=== PATIENT | female | born 1975 | race Caucasian/White ===

== ENCOUNTER 2022-09-26 15:16 | Emergency (ER) | payer SELFPAY ==
[2022-09-26 15:18] VITALS: BP 129/75; PULSE 77; RESP 4; TEMP 36.2; O2SAT 99; BMI 24.0
== END 2022-09-26 17:36 | disposition left against medical advice (07) ==
LOC: ED 17:36
DX: R79.9 Abnormal finding of blood chemistry, unspecified (principal)

== ENCOUNTER 2024-03-07 07:08 | Day surgery (SDC) | payer MEDICAID, SELFPAY ==
--- NOTE | 2024-03-06 16:56 | HP.PCM.OB_ITS ---
History and Physical Date of Admission: 03/07/24 Expand All Collapse All Pre-Op History and Physical HPI: The patient is a 48 year old adult presenting for disucssion regarding LEEP procedure. pre-operative visit. Patient gives a vague history of reaction to local anesthetic with previous LEEP at [facility]. However has received lidocaine or something similar for tooth extraction previously without complication. 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 Procedure discussed along with risks, benefits and complications. Other alternatives discussed for management. Consent form signed? Yes. PAST MEDICAL HISTORY PAST MEDICAL HISTORY Diagnosis Date ? Abnormal Pap smear of cervix ? Acid reflux ? Hx of breast biopsy ? Hypothyroidism ? MTHFR gene mutation PAST SURGICAL HISTORY PAST SURGICAL HISTORY Procedure Laterality Date ? BX OF BREAST; INCISIONAL Right clip ? CERVIX UTERI CONIZA LP ELCTRO EXCI ? D&C, DIAG AND/OR THERAPEUTIC ? LIGATE FALLOPIAN TUBE ? PT ED OBSTETRICS & GYNECOLOGY ablation ? REMOVAL GALLBLADDER CURRENT MEDICATIONS Current Outpatient Medications Medication Sig Dispense Refill ? levothyroxine (SYNTHROID) 125 mcg tablet Take 1 tablet by mouth every afternoon. ? aspirin, enteric coated (ASPIRIN, ENTERIC COATED) 81 mg EC tablet aspirin 81 mg tablet,delayed release TAKE 1 TABLET BY MOUTH ONCE DAILY ? cetirizine (ZYRTEC) 10 mg tablet Take 1 tablet by mouth once daily. ? cholecalciferol (VITAMIN D3) 50 mcg (2,000 unit) tablet cholecalciferol (vitamin D3) 50 mcg (2,000 unit) tablet TAKE 1 TABLET BY MOUTH ONCE DAILY ? cyanocobalamin (VITAMIN B-12) 1,000 mcg tab cyanocobalamin (vit B-12) 1,000 mcg tablet TAKE 1 TABLET BY MOUTH ONCE DAILY ? folic acid 1 mg tablet folic acid 1 mg tablet TAKE 1 TABLET BY MOUTH ONCE DAILY ? pantoprazole DR (PROTONIX) 40 mg tablet pantoprazole 40 mg tablet,delayed release ? levothyroxine (SYNTHROID) 112 mcg tablet Take 1 tablet by mouth every afternoon. (Patient not taking: Reported on 02/28/2024) ? levothyroxine (SYNTHROID) 100 mcg tablet Take 1 tablet by mouth once daily. (Patient not taking: Reported on 02/28/2024) No current facility-administered medications for this visit. ALLERGIES: Sulfa (Sulfonamide Antibiotics), Albuterol, Clindamycin, Erythromycin, Lorazepam, Meperidine, Moxifloxacin, Penicillins, and Propoxyphene N-Acetaminophen PERSONAL HISTORY: SOCIAL HISTORY Social History Tobacco Use ? Smoking status: Every Day Types: Cigarettes ? Smokeless tobacco: Never Vaping Use ? Vaping Use: Never used Substance Use Topics ? Alcohol use: Not Currently ? Drug use: Never FAMILY HISTORY: FAMILY HISTORY No family history on file. REVIEW OF SYMPTOMS: negative except as noted above PHYSICAL EXAMINATION: VITALS: Blood pressure 114/62, weight 59 kg (130 lb), last menstrual period . GENERAL: The patient is well nourished, well hydrated in no acute distress. , The patient is oriented to time, place, and person. NECK: full range of motion LUNGS: Clear to auscultation bilaterally. 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 Reviewed possible burn injury. Spenser with the patient not smoking day of surgery. Discussed with the patient pre and postop instructions. Spenser with the patient IntraOp injection of lidocaine or Marcaine may be given. There was nothing in her previous op note to support that she had a cardiac reaction to Lidocaine with epinephrine from 06/06/2013- I personally reviewed the note myself in care everywhere. I have reviewed and updated past medical and surgical history, medications and allergies Chelle Stokes MD
[2024-03-07] VITALS (10 sets, daily range): BP systolic 99–129; BP diastolic 61–72; PULSE 62–69; RESP 12–16; TEMP 36.2–36.6; O2SAT 97–100; BMI 24.6
--- NOTE | 2024-03-07 | CER_PTH ---
PATIENT: OREN LUCIANO [place] [facility] [place][id number] AGE/SX: 48/F ROOM: RE03/07/[address]: Dr. 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 Cervix, leep colonization: Focal minimal changes suspicious for HPV cytopathic effects. Focal minimal chronic inflammation. Resection margins are free of dysplastic changes. See comment. B. Endocervical curettings: Fragments of benign endocervical epithelium and mucosa, negative for dysplasia. See comment. /mr 03/08/2024 COMMENT A. Immunohistochemistry ([id number]) for surrogate HPV marker (p16) supports the above diagnosis. Clinical correlation is necessary. Case has been reviewed in consultation with Dr. Pierson who concurs with the above diagnosis. IDC:AM MICROSCOPIC DESCRIPTION Slides are reviewed. GROSS DESCRIPTION A. Received in fixative is one container labeled with the patient's name and designated Cervix cut at 12 o'clock. The specimen consists of a piece of talbert indurated tissue consistent with Leep colonization measuring 2.6 x 3.5 x 0.6cm. No mucosal lesion is identified. Nonmucosal surface is inked black. The endocervical margin is inked blue. Cervix is previously opened and identified as opened at 12 o'clock. The entire specimen is submitted in eight cassettes as follows: 1 and 2- 12-3o'clock, 3 and 4- 3-6 o'clock, 5 and 6-6-9 o'clock, 7 and 8- 9-12 o'clock. B. Received in fixative is one container labeled with the patient's name and designated Endocervical curettings. The specimen consists of multiple fragments of hemorrhagic soft tissue measuring in aggregate 2.0 x 0.5 x 0.1cm. The entire specimen is submitted in one cassette. Kinjal 03/07/2024 TC:5 CPT:25808, 87643
--- NOTE | 2024-03-07 | IMM_PTH ---
PATIENT: OREN LUCIANO [place]: [facility] [place][id number] AGE/SX: 48/F ROOM: RE03/07/[address]: Dr. Chelle Simon, MDDOB: 1975 BED: DIS: 03/07/2024 SPEC #: [id number] RECD: 03/08/24 12:02 STATUS: SID PADMAJA #: [id number] DALE: 03/07/24 00:[address]: Chelle Simon DEPT: IMMUNOHISTOCHEMISTRY RECD BY: Drake Bryant ENTERED: 03/08/24 12:03 SP TYPE: IMMUNO OTHR DR: Corinne Swann, CLAIM EXAMINER-Tova Tissues: A - Uterine cervix, NOS Procedures: p16 (initial) KI-67 (add) PHYSICIAN & INSTITUTION [place] [id number] SPECIMEN INFORMATION: Tissue Source: A- Cervix, cut margins at 12o'clock Clinical Info: CINN II on biopsies Specimen Number: [id number] CPT code: 89320,75642 METHODOLOGY: Deparaffinized sections of prefer/formalin-fixed tissue or PAP/DQ stained slides are incubated with monoclonal/polyclonal antibodies/oligonucleotide probes. Localization is made via biotin free immunoperoxidase method. Appropriate controls are performed and reacted as expected. Results on target cell population are indicated in the following table: RESULTS: ANTIBODY / CLONE RESULT Block A 1 P16 (E6H4) negative Ki-67 (30-9) positive ( only in basal layer of cells) Block A5 P16 (E6H4) positive focal weak patchy staining Ki-67 (30-9) positive, very low These tests were developed and their performance characteristics determined by [facility]. They may not have been cleared or approved by the U.S. Food and Drug Administration. The FDA has determined that such clearance or approval is not necessary. The above immunohistochemical/dualISH markers are ordered and reviewed by the Pathologist. INTERPRETATION: A. Cervix, leep colonization: Focal minimal changes suspicious for HPV cytopathic effects. JOHNNY/ 03/11/2024
[2024-03-07] MEDS: Lactated Ringers 1,000 ML 15 ML IV (07:32)
--- NOTE | 2024-03-07 07:54 | PCM.PRE.AN2 ---
ASA Classification* ASA Classification ASA Classification: 2 Assessment & Plan Anesthesia* Anesthesia Assessment Anesthesia Assessment: Discussed sedation and/or anesthesia options, risks, benefits, and alternatives with patient/parents/legal guardian/POA. Questions invited. The patient/parents/legal guardian/POA seems to understand and agrees to proceed with anesthesia plan. Reviewed the physical assessment, medical history, allergy history and patient home medications list prior to surgery/procedure/anesthetic and documented any changes. Performed airway and anesthesia risk assessments. 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 When Was Last Pacemaker Check QUESTION #4 FULL TEXT: You/Your Family Experience fever (hyperthermia) with Anesthesia Last Oral Intake Last Oral intake: Last Oral Intake NPO since 00:00 03/07/24 07:25 Meds taken in AM with sips of water? 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 Female Yes 02/21/24 13:01 HX of Motion Sickness No 02/21/24 13:01 HX of N/V After Surgery No 02/21/24 13:01 Non-Smoker No 02/21/24 13:01 Duration of Surgery greater No 02/21/24 13:01 than 60 minutes Number of Risk Factors 1 02/21/24 13:01 PONV Score Low Risk 02/21/24 13:01 Height & Weight Height & Weight: Anesthesia: Height & Weight Height 5 ft 1 in 03/07/24 07:25 Weight: 59.148 kg 03/07/24 07:25 Body Mass Index (BMI) 24.6 03/07/24 07:25 Respiratory Assessment Respiratory Assessment - gear cutting machine operator: Respiratory Tract Infection Hx - gear cutting machine operator Hx Respiratory Tract Infection No 02/21/24 13:01 STOP Sleep Apnea STOP Sleep Apnea - gear cutting machine operator: STOP Sleep Apnea - gear cutting machine operator Hx Hypertension No 02/21/24 13:01 Hx Sleep Apnea Yes 02/21/24 13:01 CPAP Yes: NOT NEEDED AFTER WEIGHT 02/21/24 13:01 LOSS BIPAP No 02/21/24 13:01 Do you snore loudly (louder than talking or can be heard Do you often feel tired/ fatigued/ sleepy during daytime? Has anyone observed you stop breathing during sleep? STOP Results Positive 02/21/24 13:01 QUESTION #5 FULL TEXT : Do you snore loudly (louder than talking or can be heard through closed doors)? Tobacco Use History Tobacco Use History - gear cutting machine operator: Tobacco Use History - gear cutting machine operator Tobacco Use Smoking Status Current every day smoker 02/21/24 13:01 Hx Tobacco Use Yes 02/21/24 13:01 Years Smoking Packs Smoked per Day Smoking Cessation Date was within the last 15 years Hx Smoking Cessation Date Hx Smoking Cessation Counseling Hematologic Medial History Hematologic Hx - gear cutting machine operator: Hematologic Medical Hx - progress man Hx of Blood Transfusion No 02/21/24 13:01 Hx of Transfusion in last 3 No 02/21/24 13:01 Months Date of Last Transfusion (if within last 3 months) Ever experience any problems No 02/21/24 13:01 with transfusion(s)? Specify any problems Hx of Preganancy in last 3 No 02/21/24 13:01 Months Nurse Filling Out Transfusion DSCHRIBER 02/21/24 13:01 & Questions: Date: 02/21/24 02/21/24 13:01 Time: 13:02 02/21/24 13:01 Patient unable to answer at this time (ie. confused, unrespo /Reproduction History /Reproductive History - gear cutting machine operator: /Reproductive Hx- gear cutting machine operator Hx Now No 02/21/24 13:01 Gestational Age (in weeks): EDC: Hx Hx Para Hx Section SAB No 02/21/24 13:01 Active Medications Active Medications: Current Medications Generic Name Dose Route Start Last Admin Trade Name Freq PRN Reason Stop Dose Admin Lactated Ringer's 1,000 mls @ 15 mls/hr 03/07/24 07:15 03/07/24 07:32 IV 15 mls/hr .Q48H DESEAN Administration PFSH Medical History Blind Wears dentures Cancer Anxiety Thyroid disease Diabetes Arthritis Back pain Injury of back Migraine headache Injury of head and neck MTHFR mutation (methylenetetrahydrofolate reductase) Brain fog Seizures History of hiatal hernia History of IBS Gastric reflux CPAP (continuous positive airway pressure) dependence Asthma Smoker Leg cramps Chronic cough History of pain when walking History of irregular heartbeat History of echocardiogram Chest pain Home Medications ?Medication ?Instructions ?Recorded ?Last Taken ?Type aspirin 81 mg tablet,delayed 81 mg PO DAILY 02/21/24 02/22/24 History release cholecalciferol (vitamin D3) 50 50 mcg PO DAILY 02/21/24 03/06/24 History mcg (2,000 unit) tablet cyanocobalamin (vitamin B-12) 1,000 mcg PO DAILY 02/21/24 03/06/24 History 1,000 mcg tablet (Vitamin B-12) folic acid 1 mg tablet 1 mg PO DAILY 02/21/24 03/06/24 History levothyroxine 125 mcg tablet 125 mcg PO DAILY 02/21/24 03/06/24 History pantoprazole 40 mg tablet,delayed 40 mg PO BID 02/21/24 03/06/24 History release Allergy/AdvReac Type Severity Reaction Status Date / Time albuterol (From Ventolin HFA) Allergy Severe Chest Verified 03/07/24 07:24 tightness lorazepam (From Ativan) Allergy Severe Anaphylaxis Verified 03/07/24 07:24 erythromycin base Allergy Intermediate Hives Verified 03/07/24 07:24 Sulfa (Sulfonamide Allergy Intermediate Hives Verified 03/07/24 07:24 Antibiotics) meperidine (From Demerol) Allergy Anaphylaxis Verified 03/07/24 07:24 Penicillins (PCN) Allergy Anaphylaxis Verified 03/07/24 07:24 Surgical History Hx of esophagogastroduodenoscopy History of loop electrical excision procedure (LEEP) Hx laparoscopic cholecystectomy Hx of tubal ligation Social History Smoking Status: Current every day smoker tobacco type: cigarettes Review of Systems (Anesthesia) ROS Narrative System reviewed and no additional complaints, except as documented.
--- NOTE | 2024-03-07 07:55 | PCM.PRE.AN2 ---
ASA Classification* ASA Classification ASA Classification: 2 Assessment & Plan Anesthesia* Anesthesia Assessment Anesthesia Assessment: Discussed sedation and/or anesthesia options, risks, benefits, and alternatives with patient/parents/legal guardian/POA. Questions invited. The patient/parents/legal guardian/POA seems to understand and agrees to proceed with anesthesia plan. Reviewed the physical assessment, medical history, allergy history and patient home medications list prior to surgery/procedure/anesthetic and documented any changes. Performed airway and anesthesia risk assessments. 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 When Was Last Pacemaker Check QUESTION #4 FULL TEXT: You/Your Family Experience fever (hyperthermia) with Anesthesia Last Oral Intake Last Oral intake: Last Oral Intake NPO since 00:00 03/07/24 07:25 Meds taken in AM with sips of water? 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 Female Yes 02/21/24 13:01 HX of Motion Sickness No 02/21/24 13:01 HX of N/V After Surgery No 02/21/24 13:01 Non-Smoker No 02/21/24 13:01 Duration of Surgery greater No 02/21/24 13:01 than 60 minutes Number of Risk Factors 1 02/21/24 13:01 PONV Score Low Risk 02/21/24 13:01 Height & Weight Height & Weight: Anesthesia: Height & Weight Height 5 ft 1 in 03/07/24 07:25 Weight: 59.148 kg 03/07/24 07:25 Body Mass Index (BMI) 24.6 03/07/24 07:25 Respiratory Assessment Respiratory Assessment - pig caster: Respiratory Tract Infection Hx - pig caster Hx Respiratory Tract Infection No 02/21/24 13:01 STOP Sleep Apnea STOP Sleep Apnea - pig caster: STOP Sleep Apnea - pig caster Hx Hypertension No 02/21/24 13:01 Hx Sleep Apnea Yes 02/21/24 13:01 CPAP Yes: NOT NEEDED AFTER WEIGHT 02/21/24 13:01 LOSS BIPAP No 02/21/24 13:01 Do you snore loudly (louder than talking or can be heard Do you often feel tired/ fatigued/ sleepy during daytime? Has anyone observed you stop breathing during sleep? STOP Results Positive 02/21/24 13:01 QUESTION #5 FULL TEXT : Do you snore loudly (louder than talking or can be heard through closed doors)? 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 Specify any problems Hx of Preganancy in last 3 No 02/21/24 13:01 Months Nurse Filling Out Transfusion DSCHRIBER 02/21/24 13:01 & Questions: Date: 02/21/24 02/21/24 13:01 Time: 13:02 02/21/24 13:01 Patient unable to answer at this time (ie. confused, unrespo /Reproduction History /Reproductive History - pig caster: /Reproductive Hx- pig caster Hx Now No 02/21/24 13:01 Gestational Age (in weeks): EDC: Hx Hx Para Hx Section SAB No 02/21/24 13:01 Active Medications Active Medications: Current Medications Generic Name Dose Route Start Last Admin Trade Name Freq PRN Reason Stop Dose Admin Lactated Ringer's 1,000 mls @ 15 mls/hr 03/07/24 07:15 03/07/24 07:32 IV 15 mls/hr .Q48H DESEAN Administration PFSH Medical History Blind Wears dentures Cancer Anxiety Thyroid disease Diabetes Arthritis Back pain Injury of back Migraine headache Injury of head and neck MTHFR mutation (methylenetetrahydrofolate reductase) Brain fog Seizures History of hiatal hernia History of IBS Gastric reflux CPAP (continuous positive airway pressure) dependence Asthma Smoker Leg cramps Chronic cough History of pain when walking History of irregular heartbeat History of echocardiogram Chest pain Home Medications ?Medication ?Instructions ?Recorded ?Last Taken ?Type aspirin 81 mg tablet,delayed 81 mg PO DAILY 02/21/24 02/22/24 History release cholecalciferol (vitamin D3) 50 50 mcg PO DAILY 02/21/24 03/06/24 History mcg (2,000 unit) tablet cyanocobalamin (vitamin B-12) 1,000 mcg PO DAILY 02/21/24 03/06/24 History 1,000 mcg tablet (Vitamin B-12) folic acid 1 mg tablet 1 mg PO DAILY 02/21/24 03/06/24 History levothyroxine 125 mcg tablet 125 mcg PO DAILY 02/21/24 03/06/24 History pantoprazole 40 mg tablet,delayed 40 mg PO BID 02/21/24 03/06/24 History release Allergy/AdvReac Type Severity Reaction Status Date / Time albuterol (From Ventolin HFA) Allergy Severe Chest Verified 03/07/24 07:24 tightness lorazepam (From Ativan) Allergy Severe Anaphylaxis Verified 03/07/24 07:24 erythromycin base Allergy Intermediate Hives Verified 03/07/24 07:24 Sulfa (Sulfonamide Allergy Intermediate Hives Verified 03/07/24 07:24 Antibiotics) meperidine (From Demerol) Allergy Anaphylaxis Verified 03/07/24 07:24 Penicillins (PCN) Allergy Anaphylaxis Verified 03/07/24 07:24 Surgical History Hx of esophagogastroduodenoscopy History of loop electrical excision procedure (LEEP) Hx laparoscopic cholecystectomy Hx of tubal ligation Social History Smoking Status: Current every day smoker tobacco type: cigarettes Review of Systems (Anesthesia) ROS Narrative System reviewed and no additional complaints, except as documented.
--- NOTE | 2024-03-07 08:40 | PCM.DC ---
Discharge Instructions Diet Discharge Diet: No restrictions Activity Discharge Activity: May Shower May resume sexual activity in: 2 weeks (NOTHING inside the vagina x 2 weeks) Dressing / Incision Call your doctor if you observe: Fever of 101 or Higher, Inability to urinate, Using more than 1 pad per hour and Uncontrolled pain Additional Dressing/Incision Instructions:: call if foul vaginal discharge or heavy vaginal bleeding- soaking a pad every hour. Follow Up Care Please Follow Up With: Chelle Simon MD When: 1-2 weeks post OP if you need an appointment please call [phone] Test Results: Test results from this visit will be discussed in further detail at your follow-up appointment, if applicable. Discharge Plan Admission Attending Provider: Chelle Simon Primary Care Provider: Corinne Swann Instructions Print Language: Tristanian Discharge Orders/Prescriptions Prescriptions: No Action cyanocobalamin (vitamin B-12) [Vitamin B-12] 1,000 mcg tablet 1,000 mcg PO DAILY aspirin 81 mg tablet,delayed release (DR/EC) 81 mg PO DAILY pantoprazole 40 mg tablet,delayed release (DR/EC) 40 mg PO BID levothyroxine 125 mcg tablet 125 mcg PO DAILY folic acid 1 mg tablet 1 mg PO DAILY cholecalciferol (vitamin D3) 50 mcg (2,000 unit) tablet 50 mcg PO DAILY Referrals / Follow Up: Corinne Swann, OPTICAL MANAGER-C [Primary Care Provider] - Disposition Disposition (needs filled in before D/C Order can be placed): Home, Self Care
--- NOTE | 2024-03-07 08:43 | PCM.OPRPT ---
Report of Operation Date of Procedure: 03/07/24 Pre-Operative Diagnosis: CIN2 - cervical dysplasia Post-Operative Diagnosis: SAME Surgery/Procedure Performed:: LEEP Description of Surgical Findings:: Cervix grossly appears normal Surgeon: Chelle Simon mobile home park manager: None Type of Anesthesia: Local and MAC Special Medications: 1% lidocaine Specimen's removed: Cervix , Endocervical Curettings Drains: none Estimated Blood Loss (mL): <5cc Fluids Replaced: 400 Description of Procedure: After informed consent was obtained patient was taken to the operating room she was placed in supine position she was given anesthesia. She was then placed in the yellow fin stirrups. At this time under sterile technique the bladder was drained approximately 10 cc of clear yellow urine was expelled. At this time rubber coated speculum was placed. Good visualization of the cervix. Lidocaine 1%, 10cc was injected in a circumferential fashion around the cervix performed a paracervical block. Lugol's solution was then applied. Medium Watkins loop electrode was used to perform the LEEP procedure. Good hemostasis was appreciated. Endocervical curettings was collected. Next electrocautery was used for hemostasis. No complications with this procedure. Specimens were sent to pathology for evaluation. Instrument and lap count were correct x 2. I anticipate a normal postoperative course. Grafts/Implants Used: none Procedure Start Time: 08:56 Procedure Stop Time: 09:05 Complications none Admit VTE Documentation VTE Present on Admission: Yes VTE Mechan Device Prophylaxis: SCD's VTE Pharm Prophylaxis ordered?: No Reason prophylaxis not ordered:: Procedure Not Indicated
[2024-03-07] MEDS: FERRIC SUBSULFATE 8 GM SOLN (08:56)
[2024-03-07] MEDS: Lidocaine 1% (20 ml mdv) 20 ML Vial (08:56)
[2024-03-07] MEDS: Iodine/Potassium Iodide 14ML Bottle 1 DRP TOPICAL (08:56)
--- NOTE | 2024-03-07 11:19 | PCM.POSTANE2 ---
Anesthesia Postop Eval I Sum Anesthesia Postop Eval I Summary Anesthesia Postop Eval I Summary: Anesthesia Postop Eval I: Assessment Summary Airway patent Spontaneous unlabored respirations Mental status Awake 03/07/24 10:35 nausea No 03/07/24 10:35 Vomiting No 03/07/24 10:35 Anesthesia Postop Eval I: Fluid Summary Crystalloid volume administer (ml) Colloids volume administered ( ml) Blood Product volume administered (ml) Total IV fluid infused Anesthesia Postop Eval I: Summary Notes Anesthesia Complication Anesthesia Complication Comment: Post-operative progress note Anesthesia: Postop Eval II Evaluation Mental status: Awake Pain Level: 0 nausea: No Vomiting: No
== END 2024-03-07 10:08 | disposition home or self-care (01) ==
LOC: SDC 07:12 → AC 07:13
PROVIDERS: PCP Nurse Practitioner Family; Referring Provider Obstetrics & Gynecology; Visit Provider Obstetrics & Gynecology
PROC: 0UBC7ZZ Excision of Cervix, Via Natural or Artificial Opening (ICD-10-PCS; CPT 57522; principal; 2024-03-07 08:30)
DX: N72 Inflammatory disease of cervix uteri (principal); K21.9 Gastro-esophageal reflux disease without esophagitis; F17.210 Nicotine dependence, cigarettes, uncomplicated; Z79.82 Long term (current) use of aspirin; Z79.890 Hormone replacement therapy; J45.909 Unspecified asthma, uncomplicated; Z79.899 Other long term (current) drug therapy
CPT/HCPCS: 57522; 00940; 88305; 88341; 88342; J7120; J2405

== ENCOUNTER → 2024-11-13 | Outpatient (CLI) | payer MEDICAID, SELFPAY ==
[2024-11-13 12:52] LABS: Absolute Lymphocyte Count 1.71 X10^3/uL (0.83-4.51); Basophil# 0.04 X10^3/uL; Basophil% 0.5 % (0-1); Eosinophil# 0.06 X10^3/uL; Eosinophils% 0.7 % (0-5); Hematocrit 45.5 % (37-47); Hemoglobin 15.6 g/dL (12.0-15.0); Lymphocyte # 1.71 X10^3/ul (0.83-4.51); Lymphocyte % 20.8 % (19-41); Mean Corp Hgb Conc 34.3 g/dL (32-36); Mean Corpuscular Volume 90.3 fL (81-99); Mean Platelet Vol. 9.9 fl (6.2-12.0); Monocyte# 0.36 X10^3/uL; Monocyte% 4.4 % (0-10); NRBC Flagged by Analyzer 0 % (0-5); Neutrophil # 6.02 X10^3/uL (2.7-7.7); Neutrophil % 73.4 % (47-70); Platelet Count 290 K/mm3 (150-450); RBC Distribution Width CV 13.2 % (11.6-14.6); RBC Distribution Width SD 43.4 fl (35.1-43.9); Red Blood Count 5.04 M/mm3 (4.2-5.4); White Blood Count 8.2 K/mm3 (4.4-11.0)
[2024-11-13 13:01] LABS: International Normalized Ratio 1.1; Prothrombin Time (Protime)PT. 13.9 SECONDS (11.7-14.9)
[2024-11-13 14:02] LABS: ALB/GLOB Ratio 1.5 RATIO (0.9-2.4); AST(SGOT) 16 U/L (<=31); Alanine Aminotransfer ALT/SGPT 5 U/L (<=34); Albumin, Serum 4.5 g/dL (3.5-5.0); Alkaline Phosphatase 69 U/L (35-104); Anion Gap 10 (5-15); BUN 10 mg/dL (4-19); BUN/Creat Ratio 11.5 RATIO (10-20); Calcium,Total 9.4 mg/dL (7.6-11.0); Carbon Dioxide 23.9 mmol/L (21.0-32.0); Chloride 103 mmol/L (98-108); Creatinine, Serum 0.87 mg/dL (0.70-1.20); EST Glomerular Filtration Rate 83 (>60); Glucose 95 mg/dL (70-99); Protein, Total 7.5 g/dL (5.9-8.4); Sodium Level 137 mmol/L (133-145); Total Bilirubin 0.44 mg/dL (0.00-1.30); Vitamin B12 764 pg/mL (180-914); Vitamin D,25 Hydroxy 47.2 ng/mL (30-100)
[2024-11-13 19:49] LABS: Cholesterol 166 mg/dL (<=200); High Density Lipoprotein 55 mg/dL; Low Density Lipoprotein Calc. 93 mg/dL; Triglycerides 88 mg/dL; Very Low Density Lipoprotein 18 mg/dL (5-40); cholesterol:hdl ratio screen 3.02
== END | disposition home or self-care (01) ==
LOC: VSLAB 11:12
PROVIDERS: PCP Nurse Practitioner Family
DX: E56.9 Vitamin deficiency, unspecified (principal); Z13.6 Encounter for screening for cardiovascular disorders; E03.9 Hypothyroidism, unspecified; E72.12 Methylenetetrahydrofolate reductase deficiency; Z13.220 Encounter for screening for lipoid disorders
CPT/HCPCS: 36415; 80053; 80061; 82306; 82607; 84439; 84443; 85025; 85610